=== PATIENT | female | born 1960 | race Caucasian/White ===

== ENCOUNTER 2016-04-21 16:14 | Emergency (ER) | payer BC ==
[~2016-04-21] VITALS: Ht 185.4 cm; Wt 106.0 kg
[2016-04-21 17:17] LABS: HEMATOCRIT 37.6 % (36.0-46.0); MCHC 34.6 G/DL (30.0-36.0); MCV 89.7 FL (83-99); MEAN PLAT.VOLUME 11.1 uM^3 (9.5-12.4); PLATELET COUNT 227 K/uL (156-360); RBC DIS.WIDTH-CV 13.1 % (11.8-14.6); RBC DIS.WIDTH-SD 41.9 % (39-53); RED BLOOD COUNT 4.19 M/uL (3.80-5.20); WHITE BLOOD COUNT 5.9 K/uL (4.1-10.2)
[2016-04-21 17:25] LABS: CHLORIDE 102 mEq/L (99-109); POTASSIUM 3.5 mEq/L (3.7-5.4); SODIUM 140 mEq/L (136-147)
[2016-04-21 17:27] LABS: GLUCOSE 94 mg/dL (70-99)
[2016-04-21 17:27] LABS: ADD MIUA? YES; BILIRUBIN NEGATIVE; BLOOD NEGATIVE; COLOR YELLOW ((YELLOW)); GLUCOSE (STRIP) NEGATIVE; KETONES NEGATIVE; LEUKOCYTES TRACE; NITRITE NEGATIVE; PH, URINE 6.5 (5-8); PROTEIN (STRIP) NEGATIVE; SPECIFIC GRAVITY 1.011 (1.000-1.030); UROBILINOGEN 0.2 MG/DL (0.2-1.0)
[2016-04-21 17:29] LABS: ANION GAP 11 MEQ/L (2-14); TOTAL BILIRUBIN 0.2 mg/dL (0.0-1.0)
[2016-04-21 17:31] LABS: ALKALINE PHOSPHATASE 123 IU/L (3-129); GFR ESTIMATE (CALCULATED) > 59 mL/min/
[2016-04-21 17:32] LABS: UREA NITROGEN (BUN) 15 mg/dL (9-23)
[2016-04-21 17:34] LABS: LIPASE 33 U/L (1.0-51.0)
[2016-04-21 17:40] LABS: QUANTITATIVE HCG < 4.0 MIU/ML
[2016-04-21 17:41] LABS: BACTERIA NONE SEEN; CASTS NONE SEEN /LPF; CRYSTALS NONE SEEN; EPITHELIAL CELLS RARE; MUCUS NONE SEEN; PATHOLOGICAL CAST NONE SEEN; RED BLOOD CELLS 0-5 /HPF (0-5); SMALL ROUND CELL NONE SEEN; UCUL ADDED? NO; WHITE BLOOD CELLS 0-5 /HPF (0-5); YEAST-LIKE CELL NONE SEEN
[2016-04-21] MEDS ORDERED: CITRATE OF MAG296 ML PO (18:04)
[2016-04-21] MEDS ORDERED: MIRALAX17 GM PO (18:04)
[2016-04-21 18:16] VITALS: BP 154/79
== END 2016-04-21 18:17 | disposition home or self-care (01) ==
LOC: EME 16:14
PROVIDERS: Nurse Practitioner Family
DX: K59.00 Constipation, unspecified (principal); R10.30 Lower abdominal pain, unspecified; R10.9 Unspecified abdominal pain; I10 Essential (primary) hypertension; Z96.643 Presence of artificial hip joint, bilateral
CPT/HCPCS: 74000; 80053; 81003; 83605; 83690; 84702; 85027; 99281; 99283